=== PATIENT | female | born 1990 | race Caucasian/White ===

== ENCOUNTER 2020-08-04 16:56 | Emergency (ER) | payer BC ==
[~2020-08-04] VITALS: Ht 160 cm; Wt 62.7 kg
[2020-08-04 17:07] VITALS: BP 137/75
[2020-08-04] MEDS ORDERED: IBUPROFEN 600 MG TABLET. PO ONE (17:15)
--- NOTE | 2020-08-04 17:36 | PHYS DOC ---
General Adult EDM: Chief Complaint: FOOT INJURY PAIN HPI: HPI: 29-year-old female coming in for pain to the bottom of her right foot at the ball for 4 days. Was going down some steps and missed a step and rolled her foot 4 days ago. Has been able to ambulate on her heel or with pain. Taken Tylenol for pain. No other injuries, no injuries to that foot in the past. (HIGINIO VILLANUEVA MD) Review of Systems: Review of Systems: Constitutional: Denies fever or chills Eyes: Denies change in visual acuity HENT: Denies nasal congestion or sore throat Respiratory: Denies cough or shortness of breath Cardiovascular: Denies chest pain or edema GI: Denies abdominal pain, nausea, vomiting, bloody stools or diarrhea : Denies dysuria Musculoskeletal: Denies back pain or joint pain, foot pain Integument: Denies rash Neurologic: Denies headache, focal weakness or sensory changes Endocrine: Denies polyuria or polydipsia Lymphatic: Denies swollen glands Psychiatric: Denies depression or anxiety (HIGINIO VILLANUEVA MD) Heart Score: Risk Factors: Risk Factors: DM, Current or recent (<one month) smoker, HTN, HLP, family history of CAD, obesity. Risk Scores: Score 0 - 3: 2.5% MACE over next 6 weeks - Discharge Home Score 4 - 6: 20.3% MACE over next 6 weeks - Admit for Clinical Observation Score 7 - 10: 72.7% MACE over next 6 weeks - Early Invasive Strategies (HIGINIO VILLANUEVA MD) Current Medications: Current Meds: Current Medications Medications (Trade) Dose Ordered Sig/Anam Start Time Stop Time Status Last Admin Dose Admin Ibuprofen (Motrin) 600 mg 1X ONCE 08/04/20 17:15 08/04/20 17:16 UNV (HIGINIO VILLANUEVA MD) Physical Exam: PE: Constitutional: Well developed, well nourished, no acute distress, non-toxic appearance. [] HENT: Normocephalic, atraumatic, bilateral external ears normal, oropharynx moist, no oral exudates, nose normal. [] Eyes: PERRLA, EOMI, conjunctiva normal, no discharge. [] Neck: Normal range of motion, no tenderness, supple, no stridor. [] Cardiovascular:Heart rate regular rhythm, no murmur [] Lungs & Thorax: Bilateral breath sounds clear to auscultation [] Abdomen: Bowel sounds normal, soft, no tenderness, no masses, no pulsatile masses. [] Skin: Warm, dry, no erythema, no rash. [] Back: No tenderness, no CVA tenderness. [] Extremities: No tenderness, no cyanosis, no clubbing, ROM intact, no edema. [] Tenderness over plantar right foot, no deformities or crepitus. Neurologic: Alert and oriented X 3, normal motor function, normal sensory function, no focal deficits noted. [] Psychologic: Affect normal, judgement normal, mood normal. [] (HIGINIO VILLANUEVA MD) EKG: EKG: [] (HIGINIO VILLANUEVA MD) Radiology/Procedures: Radiology/Procedures: Three-view right foot radiographs 08/04/2020 CLINICAL HISTORY: Injury to the right foot. AP, lateral and oblique digital radiographs of the right foot were obtained. No fracture or dislocation of the right foot is seen. No radiopaque foreign body is noted. IMPRESSION: No fracture or dislocation of the right foot is seen. [] (HIGINIO VILLANUEVA MD) Impressions: Three-view right foot radiographs 08/04/2020 CLINICAL HISTORY: Injury to the right foot. AP, lateral and oblique digital radiographs of the right foot were obtained. No fracture or dislocation of the right foot is seen. No radiopaque foreign body is noted. IMPRESSION: No fracture or dislocation of the right foot is seen. Electronically signed by: Nathanael Wade MD (08/04/2020 6:33 PM) [id number] DICTATED AND SIGNED BY: NATHANAEL WADE MD DATE: 08/04/20 1833 CC: HIGINIO VILLANUEVA MD; PCP,NO ~ (JAZ MATT DO) Course & Med Decision Making: Course & Med Decision Making Pertinent Labs and Imaging studies reviewed. (See chart for details) [] (HIGINIO VILLANUEVA MD) Dragon Disclaimer: Dragon Disclaimer: This electronic medical record was generated, in whole or in part, using a voice recognition dictation system. (HIGINIO VILLANUEVA MD) Departure Departure: Disposition: 01 DC HOME SELF CARE/HOMELESS Condition: STABLE Referrals: PCP,NO (PCP) Scripts Hydrocodone Bit/Acetaminophen (NORCO 5-325 TABLET) 1 Each Tablet 1 TAB PO PRN Q6HRS PRN for PAIN, #10 TAB 0 Refills Prov: JAZ MATT DO 08/04/20 HIGINIO VILLANUEVA MD Aug 04, 2020 17:36 JAZ MATT DO Aug 04, 2020 18:43
--- NOTE | 2020-08-04 18:37 | RAD ---
Three-view right foot radiographs 08/04/2020 CLINICAL HISTORY: Injury to the right foot. AP, lateral and oblique digital radiographs of the right foot were obtained. No fracture or dislocation of the right foot is seen. No radiopaque foreign body is noted. IMPRESSION: No fracture or dislocation of the right foot is seen. Electronically signed by: Nathanael Gonzalez MD (08/04/2020 6:33 PM) [id number]
[2020-08-04] MEDS ORDERED: HYDR-3165 PO (18:45)
[2020-08-04] MEDS ORDERED: HYDROcodone/APAP 5/325MG 1 TAB TABLET PO ONE (18:45)
== END 2020-08-04 18:56 | disposition home or self-care (01) ==
LOC: ER 16:56
DX: M79.671 Pain in right foot (principal); X50.9XXA Other and unspecified overexertion or strenuous movements or postures, initial encounter; Y93.89 Activity, other specified; Y92.89 Other specified places as the place of occurrence of the external cause; Y99.8 Other external cause status
CPT/HCPCS: 73630; 99283

== ENCOUNTER → 2021-01-23 | Outpatient (CLI) | payer BC ==
[~2021-01-23] MED LIST: HYDR-3165 PO
[2021-01-24 15:23] LABS: FREE T4 > 8.00 ng/dL (0.76-1.46); THYROID STIM HORMONE (TSH) < 0.007 uIU/mL (0.358-3.740)
== END ==
LOC: LAB 08:59
PROVIDERS: ATTEND Specialist
DX: E05.90 Thyrotoxicosis, unspecified without thyrotoxic crisis or storm (principal)
CPT/HCPCS: 84439; 84443

== ENCOUNTER 2021-05-11 10:36 | Emergency (ER) | payer BC ==
[~2021-05-11] VITALS: Ht 160 cm; Wt 65.9 kg
[2021-05-11 10:49] VITALS: BP 151/81
--- NOTE | 2021-05-11 11:02 | PHYS DOC ---
Past History Past Medical History: No Pertinent History Additional Past Medical Histor: Tachycardia thyroidectomy Past Surgical History: No Surgical History Additional Past Surgical Histo: thyroidectomy Alcohol Use: None General Adult EDM: Chief Complaint: ABNORMAL LABS HPI: HPI: Patient is a 30-year-old female coming in for concerns of hypocalcemia. Patient says she has had difficulty with her calcium levels after her thyroidectomy in February. Patient states she had a total thyroidectomy due to a large goiter. She has been taking 100 mcg of Synthroid since her surgery. Patient states she feels like her muscles are cramping up, she has lightheaded, and diaphoretic. Denies any other recent illness. Has not had her Covid vaccines. Patient states that she takes 5x5 times a day and then as needed when she starts to get muscle cramps. Patient states she still has her parathyroid glands but they Review of Systems: Review of Systems: All other systems within normal limits except for as noted in the HPI Allergies: Allergies: Allergies Coded Allergies Type Severity Reaction Last Updated Verified No Known Drug Allergies 08/04/20 No Physical Exam: PE: Constitutional: Well developed, well nourished, no acute distress, non-toxic appearance. [] HENT: Normocephalic, atraumatic, bilateral external ears normal, nose normal. [] Eyes: PERRLA, conjunctiva normal, no discharge. [] Neck: No rigidity, supple, no stridor. [] Cardiovascular: Tachycardic, regular rhythm, brisk cap refill [] Lungs & Thorax: Non labored symmetric respirations, no tachypnea or respiratory distress [] Abdomen: Soft, nondistended. Skin: Warm, diaphoretic, no erythema, no rash. [] Back: Unremarkable Extremities: No deformities, range of motion grossly intact, no lower extremity edema [] Neurologic: Alert and oriented X 3, no focal deficits noted. [] Psychologic: Affect normal, judgement normal, mood normal. [] Current Patient Data: Vital Signs: Vital Signs Date Time Temp Pulse Resp B/P (MAP) Pulse Ox O2 Delivery O2 Flow Rate FiO2 05/11/21 10:49 97.8 95 20 151/81 96 Room Air EKG: EKG: Sinus rhythm, heart rate 90 bpm, prolonged QT, no ST elevation or depression, no ectopy. Normal axis. [] Radiology/Procedures: Radiology/Procedures: [address] [address] IMAGING REPORT Signed PATIENT: ROCIO TRANUNT: [id number] : 1990 LOCATION: ER AGE: 30 SEX: F EXAM STATUS: PRE ER ORD. PHYSICIAN: HIGINIO VILLANUEVA MD REASON: tachycardia PROCEDURE: CHEST AP ONLY AP portable chest radiograph 05/11/2021 Clinical History: Tachycardia. An AP erect portable digital radiograph of the chest was obtained. The cardiac and mediastinal silhouettes are within normal limits in size and configuration. No acute pulmonary infiltrate is seen. No pleural effusion or pneumothorax is noted. Surgical clips overlie the inferior right neck. The osseous structures are grossly intact. IMPRESSION: No acute abnormality is seen. Electronically signed by: Nathanael Gonzalez MD (05/11/2021 11:21 AM) [id number] DICTATED AND SIGNED BY: NATHANAEL GONZALEZ MD DATE: 05/11/211120 CC: HIGINIO VILLANUEVA MD; PCP,NO ~MTH0 0 [] Heart Score: C/O Chest Pain: N/A HEART Score for Chest Pain: HEART Score for Chest Pain Response (Comments) Value History Slighlty/Non-Suspicious 0 ECG Nonspecific Repolarizatio 1 Age < 45 0 Risk Factors No Risk Factors 0 Troponin < Normal Limit 0 Total 1 Risk Factors: Risk Factors: DM, Current or recent (<one month) smoker, HTN, HLP, family history of CAD, obesity. Risk Scores: Score 0 - 3: 2.5% MACE over next 6 weeks - Discharge Home Score 4 - 6: 20.3% MACE over next 6 weeks - Admit for Clinical Observation Score 7 - 10: 72.7% MACE over next 6 weeks - Early Invasive Strategies Course & Med Decision Making: Course & Med Decision Making Patient to be transferred to for endocrinology. Accepted to ICU by Dr. Levi Lemons. Oma Disclaimer: Oma Disclaimer: This electronic medical record was generated, in whole or in part, using a voice recognition dictation system. Departure Departure: Impression: Primary Impression: Hypocalcemia Additional Impression: Prolonged QT interval Disposition: HOME / SELF CARE / HOMELESS Condition: GUARDED Referrals: PCP,NO (PCP) HIGINIO VILLANUEVA MD May 11, 2021 11:02
--- NOTE | 2021-05-11 11:24 | RAD ---
AP portable chest radiograph 05/11/2021 Clinical History: Tachycardia. An AP erect portable digital radiograph of the chest was obtained. The cardiac and mediastinal silhouettes are within normal limits in size and configuration. No acute pulmonary infiltrate is seen. No pleural effusion or pneumothorax is noted. Surgical clips overlie th e inferior right neck. The osseous structures are grossly intact. IMPRESSION: No acute abnormality is seen. Electronically signed by: Nathanael Gonzalez MD (05/11/2021 11:21 AM) [id number]
[2021-05-11 11:31] LABS: BASO % 0 % (0-3); EOS # 0.1 x10^3/uL (0.0-0.7); EOS % 1 % (0-3); HEMATOCRIT 34.5 % (36.0-47.0); HEMOGLOBIN 10.9 g/dL (12.0-15.5); LYMPH # 3.6 x10^3/uL (1.0-4.8); LYMPH % 37 % (24-48); MEAN CORPUSCULAR HEMOGLOBIN 24 pg (25-35); MEAN CORPUSCULAR HGB CONC 32 g/dL (31-37); MEAN CORPUSCULAR VOLUME 77 fL (79-100); MONO # 0.5 x10^3/uL (0.0-1.1); MONO % 5 % (0-9); NEUT # 5.6 x10^3uL (1.8-7.7); NEUT % 57 % (31-73); PLATELET COUNT 352 x10^3/uL (140-400); RED BLOOD COUNT 4.47 x10^6/uL (3.50-5.40); RED CELL DISTRIBUTION WIDTH 14.9 % (11.5-14.5); WHITE BLOOD COUNT 9.9 x10^3/uL (4.0-11.0)
[2021-05-11] MEDS ORDERED: IV RINGERS SOLUTION,LACTATED 1,000 ML IV ONE (11:45)
[2021-05-11 11:53] LABS: ALBUMIN 3.8 g/dL (3.4-5.0); ALBUMIN/GLOBULIN RATIO 1.1 (1.0-1.7); ALK PHOS 141 U/L (46-116); ALT (SGPT) 22 U/L (14-59); ANION GAP 17 (6-14); AST (SGOT) 32 U/L (15-37); BLOOD UREA NITROGEN 9 mg/dL (7-20); BUN/CREATININE RATIO 11 (6-20); CARBON DIOXIDE 21 mmol/L (21-32); CHLORIDE 104 mmol/L (98-107); CREATININE 0.8 mg/dL (0.6-1.0); GFR 83.7; GLUCOSE 96 mg/dL (70-99); MAGNESIUM 1.9 mg/dL (1.8-2.4); PHOSPHORUS 4.6 mg/dL (2.6-4.7); POTASSIUM 3.5 mmol/L (3.5-5.1); SODIUM 142 mmol/L (136-145); TOTAL BILIRUBIN 0.3 mg/dL (0.2-1.0); TOTAL PROTEIN 7.3 g/dL (6.4-8.2)
[2021-05-11 12:05] LABS: CALCIUM < 5.0 mg/dL (8.5-10.1)
[2021-05-11] MEDS ORDERED: CALCIUM GLUCONATE 1,000 MG/10 ML VIAL IV ONE ×3 (12:15→15:00)
[2021-05-11 13:28] LABS: BARBITURATES NEG (NEG); BENZODIAZEPINES NEG (NEG); CANNABINOIDS NEG (NEG); COCAINE NEG (NEG); METHADONE NEG (NEG); OPIATES NEG (NEG); PHENCYCLIDINE NEG (NEG)
[2021-05-11 13:31] LABS: BILIRUBIN,URINE NEG (NEG); CLARITY,URINE HAZY; COLOR,URINE STRAW; GLUCOSE,URINE NEG (NEG); NITRITE,URINE NEG (NEG); RBC,URINE OCC /HPF (0-2); UROBILINOGEN,URINE 0.2 mg/dL (0.2 mg/dL)
[2021-05-11 13:32] LABS: BACTERIA,URINE FEW /HPF (0-FEW); SQUAMOUS EPITHELIAL CELL,UR MANY /LPF; WBC,URINE RARE /HPF (0-4)
[2021-05-11 13:34] LABS: AMPHETAMINE/METHAMPHETAMINE NEG (NEG)
[2021-05-11 21:57] LABS: FREE T4 0.62 ng/dL (0.76-1.46); THYROID STIM HORMONE (TSH) 0.603 uIU/mL (0.358-3.740)
[2021-05-13 12:12] LABS: CALCIUM PTH 6.1 mg/dL (8.7-10.2); CREATININE PTH 0.53 mg/dL (0.57-1.00)
--- NOTE | 2021-05-13 14:02 | EKG ---
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
== END 2021-05-11 15:33 | disposition home or self-care (01) ==
LOC: ER 10:36
DX: E83.51 Hypocalcemia (principal); R94.31 Abnormal electrocardiogram [ECG] [EKG]; R25.2 Cramp and spasm
CPT/HCPCS: 36415; 71045; 80053; 80307; 81001; 82550; 83735; 83874; 83880; 83970; 84100; 84439; 84443; 84481; 84484; 85025; 85379; 87040; 93005; 96361; 96374; 96376; 99285; J0610; J7120

== ENCOUNTER → 2021-06-17 | Outpatient (CLI) | payer BC ==
[2021-06-17 16:23] LABS: CALCIUM 6.9 mg/dL (8.5-10.1); CREATININE 0.6 mg/dL (0.6-1.0); GFR 116.6; PHOSPHORUS 4.2 mg/dL (2.6-4.7); POTASSIUM 3.4 mmol/L (3.5-5.1); TOTAL BILIRUBIN 0.2 mg/dL (0.2-1.0)
[2021-06-18 01:21] LABS: CALCIUM PTH 7.4 mg/dL (8.7-10.2); CREATININE PTH 0.63 mg/dL (0.57-1.00); PTH INTACT 45 pg/mL (15-65)
[2021-06-18 14:36] LABS: FREE T4 1.02 ng/dL (0.76-1.46); THYROID STIM HORMONE (TSH) 4.125 uIU/mL (0.358-3.740)
== END ==
LOC: LAB 15:18
DX: E20.8 Other hypoparathyroidism (principal)
CPT/HCPCS: 36415; 80053; 83970; 84100; 84439; 84443

== ENCOUNTER → 2021-10-03 | Outpatient (CLI) | payer BC ==
[2021-10-03 12:45] LABS: ALBUMIN 3.8 g/dL (3.4-5.0); CALCIUM 7.1 mg/dL (8.5-10.1); CREATININE 0.6 mg/dL (0.6-1.0); GFR 116.6; POTASSIUM 3.7 mmol/L (3.5-5.1); TOTAL BILIRUBIN 0.2 mg/dL (0.2-1.0); TOTAL PROTEIN 7.6 g/dL (6.4-8.2)
== END ==
LOC: LAB 11:33
PROVIDERS: ATTEND Specialist
DX: E83.51 Hypocalcemia (principal)
CPT/HCPCS: 36415; 80053

== ENCOUNTER → 2021-11-11 | Outpatient (CLI) | payer BC ==
[2021-11-11 10:30] LABS: ALBUMIN 4.1 g/dL (3.4-5.0); ALBUMIN/GLOBULIN RATIO 1.1 (1.0-1.7); CALCIUM 8.1 mg/dL (8.5-10.1); CREATININE 0.7 mg/dL (0.6-1.0); GFR 97.6; POTASSIUM 4.1 mmol/L (3.5-5.1); TOTAL BILIRUBIN 0.4 mg/dL (0.2-1.0); TOTAL PROTEIN 7.9 g/dL (6.4-8.2)
[2021-11-11 13:39] LABS: FREE T4 1.24 ng/dL (0.76-1.46); THYROID STIM HORMONE (TSH) 7.082 uIU/mL (0.358-3.740)
[2021-11-12 11:08] LABS: CALCIUM PTH 8.8 mg/dL (8.7-10.2); CREATININE PTH 0.78 mg/dL (0.57-1.00); PTH INTACT 21 pg/mL (15-65)
== END ==
LOC: LAB 09:23
PROVIDERS: ATTEND Specialist
DX: E03.9 Hypothyroidism, unspecified (principal); E20.8 Other hypoparathyroidism
CPT/HCPCS: 36415; 80053; 83970; 84439; 84443

== ENCOUNTER → 2022-01-24 | Outpatient (CLI) | payer BC ==
[2022-01-24 09:46] LABS: ALBUMIN 3.7 g/dL (3.4-5.0); ALBUMIN/GLOBULIN RATIO 1.1 (1.0-1.7); CALCIUM 8.5 mg/dL (8.5-10.1); CREATININE 0.6 mg/dL (0.6-1.0); GFR 115.9; TOTAL BILIRUBIN 0.2 mg/dL (0.2-1.0); TOTAL PROTEIN 7.2 g/dL (6.4-8.2)
[2022-01-25 14:41] LABS: CALCIUM PTH 9.3 mg/dL (8.7-10.2); PTH INTACT 20 pg/mL (15-65)
== END ==
LOC: LAB 08:49
PROVIDERS: ATTEND Specialist
DX: E83.51 Hypocalcemia (principal)
CPT/HCPCS: 36415; 80053; 83970